=== PATIENT | male | born 1955 | race Caucasian/White ===

== ENCOUNTER → 2018-11-23 | Outpatient (CLI) | payer MEDICARE | END | disposition home or self-care (01) | LOC: LABWHC1 11:03 | PROVIDERS: ATTEND Radiology Radiation Oncology | DX: C61 Malignant neoplasm of prostate (principal); Z90.79 Acquired absence of other genital organ(s); E55.9 Vitamin D deficiency, unspecified | CPT/HCPCS: 36415; 82306; 84153; 84403 ==

== ENCOUNTER → 2019-02-13 | Outpatient (CLI) | payer MEDICARE | END | disposition home or self-care (01) | LOC: LABWHC1 14:20 | PROVIDERS: ATTEND Radiology Radiation Oncology | DX: C61 Malignant neoplasm of prostate (principal); Z90.79 Acquired absence of other genital organ(s) | CPT/HCPCS: 36415; 84153 ==

== ENCOUNTER → 2019-07-11 | Outpatient (CLI) | payer MEDICARE | END | disposition home or self-care (01) | LOC: LABWHC1 14:32 | PROVIDERS: ATTEND Radiology Radiation Oncology | DX: C61 Malignant neoplasm of prostate (principal); Z92.3 Personal history of irradiation; Z90.79 Acquired absence of other genital organ(s) | CPT/HCPCS: 36415; 84153 ==

== ENCOUNTER 2020-01-18 12:27 | Emergency (ER) | payer MEDICARE, OTHER ==
[2020-01-18] MEDS ORDERED: DIPH,PERTUS(ACELL)TETVAC-LF 0.5 ML VIAL IM ONE (13:41)
--- NOTE | 2020-01-18 13:49 | ED ---
General Adult HPI - General Chief complaint: Wound/Laceration Stated complaint: head lac Time Seen by Provider: 01/18/20 12:38 Source: patient, RN notes reviewed Mode of arrival: ambulatory Limitations: no limitations - History of Present Illness Initial comments: 64-year-old male with a past medical history of gout presents to the emergency department for a chief complaining of laceration. Patient states he was working under his car 24 hours ago when he dropped a wrench on his forehead. He states that it stopped bleeding. States he is now here to have it sutured. Patient is not up-to-date on tetanus. Patient denies headache. Denies blood thinner usage. States he has been cleaning the wound.Patient has no other complaints at this time including shortness of breath, chest pain, abdominal pain, nausea or vomiting, headache, or visual changes. - Related Data Allergies Allergy/AdvReac Type Severity Reaction Status Date / Time No Known Allergies Allergy Verified 01/18/20 12:34 Review of Systems ROS Statement: Those systems with pertinent positive or pertinent negative responses have been documented in the HPI. ROS Other: All systems not noted in ROS Statement are negative. Past Medical History Additional Past Medical History / Comment(s): gout History of Any Multi-Drug Resistant Organisms: None Reported Additional Past Surgical History / Comment(s): knee surgery x 2, wrist surgery Past Psychological History: No Psychological Hx Reported Smoking Status: Never smoker Past Alcohol Use History: None Reported Past Drug Use History: None Reported General Exam Limitations: no limitations General appearance: alert, in no apparent distress Head exam: Present: normocephalic, normal inspection. Absent: atraumatic (Patient has a longitudinal 2 cm laceration noted to the midforehead. This is non-gaping. No active bleeding. No signs of infection such as surrounding erythema.) Eye exam: Present: normal appearance, PERRL, EOMI. Absent: scleral icterus, conjunctival injection, periorbital swelling ENT exam: Present: normal exam, normal oropharynx, mucous membranes moist, TM's normal bilaterally, normal external ear exam Neck exam: Present: normal inspection, full ROM. Absent: tenderness, meningismus, lymphadenopathy Respiratory exam: Present: normal lung sounds bilaterally. Absent: respiratory distress, wheezes, rales, rhonchi, stridor Cardiovascular Exam: Present: regular rate, normal rhythm, normal heart sounds. Absent: systolic murmur, diastolic murmur, rubs, gallop, clicks Neurological exam: Present: alert, oriented X3, normal gait, other (GCS) Course Vital Signs 01/18/20 12:29 Temperature 97.5 F L Pulse Rate 58 L Respiratory 16 Rate Blood Pressure 155/90 O2 Sat by Pulse 100 Oximetry Medical Decision Making - Medical Decision Making Wound was obtained to 24 hours ago. Wound is already well approximated and is not bleeding. At this time primary closure is not recommended given risk of infection. Wound was cleaned. Patient was updated on tetanus. He is understanding of why we are not suturing this today. He will follow up with primary care for a recheck. He will monitor for signs of infection and return here if he notices these or any other worsening symptoms. Disposition Clinical Impression: Laceration Disposition: HOME SELF-CARE Condition: Good Instructions (If sedation given, give patient instructions): Laceration (ED) Additional Instructions: Please keep wound cleaned. Monitor for signs infection such as spreading redness, purulent drainage, or fevers and return if these occur. Return if you have any other worsening symptoms. Otherwise follow-up with primary care for a recheck. Is patient prescribed a controlled substance at d/c from ED?: No Referrals: Magdalena Pablo MD [Primary Care Provider] - 1-2 days Time of Disposition: 13:49
[2020-01-18 14:18] VITALS: BP 148/89; PULSE 60; RESP 20; TEMP 97.8
== END 2020-01-18 14:16 | disposition home or self-care (01) ==
LOC: EC 12:27
DX: S01.81XA Laceration without foreign body of other part of head, initial encounter (principal); M10.9 Gout, unspecified; Z23 Encounter for immunization; W20.8XXA Other cause of strike by thrown, projected or falling object, initial encounter; Y93.89 Activity, other specified; Y92.009 Unspecified place in unspecified non-institutional (private) residence as the place of occurrence of the external cause
CPT/HCPCS: 90471; 90715; 99282

== ENCOUNTER → 2020-01-25 | Outpatient (CLI) | payer MEDICARE | END | disposition home or self-care (01) | LOC: LABWHC1 11:34 | PROVIDERS: ATTEND Radiology Radiation Oncology | DX: C61 Malignant neoplasm of prostate (principal); Z92.3 Personal history of irradiation; Z90.79 Acquired absence of other genital organ(s) | CPT/HCPCS: 36415; 84153 ==

== ENCOUNTER → 2022-06-03 | Outpatient (CLI) | payer MEDICARE ==
--- NOTE | 2022-06-03 23:17 | US ---
EXAMINATION TYPE: US kidneys/renal and bladder DATE OF EXAM: 06/03/2022 COMPARISON: NONE CLINICAL HISTORY: R31.0 HEMATURIA. Hematuria EXAM MEASUREMENTS: Right Kidney: 11.2 x 5.5 x 4.9 cm Left Kidney: 10.6 x 6.0 x 6.5 cm Right Kidney: No hydronephrosis seen, multiple cystic areas seen in inferior pole, largest measures 3 .1 x 2.6 x 2.5 cm, 2.) 2.2 x 2.2 x 2.2 cm Left Kidney: Inferior pole cyst measuring 1.8 x 1.9 x1.8 cm Bladder: Questionable debris seen in bladder Bilateral Jets seen: Yes There is no evidence for hydronephrosis at this point in time. No nephrolithiasis is seen. Right kid savanah has debris adjacent simple-appearing thin-walled cysts at lower pole level. Left kidney has 1.9 c m simple appearing cyst lower pole level The urinary bladder is. Adequately distended. Bilateral ure teral jets are seen. IMPRESSION: Source of hematuria not identified. If symptoms persist further investigation with CT uro gram would be warranted.
== END | disposition home or self-care (01) ==
LOC: RADUSWWP 16:08
PROVIDERS: ATTEND Urology
DX: R31.0 Gross hematuria (principal)
CPT/HCPCS: 76770

== ENCOUNTER → 2023-10-20 | Outpatient (CLI) | payer MEDICARE ==
--- NOTE | 2023-10-22 09:23 | PE ---
EXAMINATION TYPE: PET CT fusion skull to thigh DATE OF EXAM: 10/20/2023 CLINICAL INDICATION:Male, 68 years old with history of C61 PROSTATE CANCER; TECHNIQUE: Following the intravenous administration of 5.8 mCi of Ga-68 Illuccix (PSMA), whole body images are performed from the skull base to the midthigh. Images are reviewed on the computer in th e coronal, axial, and sagittal planes. Reconstructed rotating images are created on independent work station and reviewed on the computer. A non-contrast CT is performed in conjunction with the PET sc an. CT DLP: 869 mGycm, Automated exposure control for dose reduction was used. COMPARISON: CT None, PET/CT None, FINDINGS: Mediastinal SUV mean is 1.7. Hepatic parenchyma SUV mean is 6.6. SKULL BASE AND NECK: No suspicious radiotracer activity. CHEST, MEDIASTINUM, AND HILAR REGION: No suspicious radiotracer activity. ABDOMEN AND PELVIS: The prostate gland appears surgically absent. No abnormal surgical bed radiotracer uptake. MUSCULOSKELETAL STRUCTURES: No suspicious radiotracer activity. OTHER CT: Enlarged multinodular thyroid gland. Mild consultations of the coronary arteries. 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 Fat-containing bilateral inguinal hernias. IMPRESSION: Surgically absent prostate gland without suspicious radiotracer activity.
== END | disposition home or self-care (01) ==
LOC: RADPETMAIN 15:31
PROVIDERS: ATTEND Urology
DX: C61 Malignant neoplasm of prostate (principal); Z90.89 Acquired absence of other organs
CPT/HCPCS: 78815; A9596

== ENCOUNTER → 2024-03-23 | Outpatient (CLI) | payer MEDICARE | END | disposition home or self-care (01) | LOC: LABWHC1 13:24 | PROVIDERS: ATTEND Urology | DX: C61 Malignant neoplasm of prostate (principal) | CPT/HCPCS: 36415; 84153 ==

== ENCOUNTER → 2024-10-01 | Outpatient (CLI) | payer MEDICARE | END | disposition home or self-care (01) | LOC: LABWHC1 14:31 | PROVIDERS: ATTEND Urology | DX: C61 Malignant neoplasm of prostate (principal) | CPT/HCPCS: 36415; 84153 ==

== ENCOUNTER → 2025-04-10 | Outpatient (CLI) | payer MEDICARE | END | disposition home or self-care (01) | LOC: LABWHC1 11:11 | PROVIDERS: ATTEND Urology | DX: C61 Malignant neoplasm of prostate (principal) | CPT/HCPCS: 36415; 84153 ==